=== PATIENT | male | born 1940 | race Asian ===

== ENCOUNTER 2020-01-02 17:25 | Emergency (ER) | payer OTHER ==
[~2020-01-02] VITALS: Ht 167.6 cm; Wt 65.9 kg
[~2020-01-02 17:25] MED LIST: ALLO100T21 PO; AMLO10TA PO; ASPI-1822 PO; ATEN50TA8 PO; CALC667S PO; HYDR-3229 PO; LOSA50TA57 PO; POTA20TE62 PO; SEN30 PO; SEVE800T PO; VITA1TAB44 PO
[2020-01-02 17:35] VITALS: BP 199/95
--- NOTE | 2020-01-02 18:00 | NUR ---
79 YO MALE BIBA FROM DIALYSIS FOR UNCONTROLLED BLEEDING FROM HIS SHUNT SITE. PT CAME IN WITH A GLOVE WRAPPED AROUND HIS ARM TO CONTROL BLEEDING. NO ACTIVE BLEEDING AT THIS TIME. LABS DRAWN AND TAKEN TO LAB. HX- HTN
--- NOTE | 2020-01-02 18:20 | NUR ---
PT REFUSED T DAP SHOT.
[2020-01-02 18:29] LABS: BASOPHILS % (AUTO) 0.7 % (0.0-2.0); EOSINOPHILS # (AUTO) 0.1 K/uL (0-0.4); EOSINOPHILS % (AUTO) 1.8 % (0.0-4.0); HEMATOCRIT 33.2 % (36-52); HEMOGLOBIN 11.1 g/dL (12.0-18.0); LYMPHOCYTES # (AUTO) 0.7 K/uL (2.0-11.5); LYMPHOCYTES % (AUTO) 15.5 % (20.5-51.1); MEAN CORPUSCULAR HEMOGLOBIN 32 pg (27-31); MEAN CORPUSCULAR HGB CONC 33 g/dL (33-37); MONOCYTES # (AUTO) 0.4 K/uL (0.8-1.0); MONOCYTES % (AUTO) 8.5 % (1.7-9.3); NEUTROPHILS # (AUTO) 3.5 K/uL (1.8-7.7); NEUTROPHILS % (AUTO) 73.5 % (42.2-75.2); PLATELET COUNT (AUTO) 192 K/uL (140-450); RED BLOOD CELL COUNT(AUTO) 3.49 MIL/uL (4.20-6.10); RED CELL DISTRIBUTION WIDTH 14.4 % (11.6-13.7); WHITE BLOOD COUNT (AUTO) 4.8 K/uL (4.8-10.8)
[2020-01-02 18:44] LABS: ANION GAP 13.4 (8-16); CARBON DIOXIDE 31.8 mmol/L (21-32); CHLORIDE 98 mmol/L (98-107); GLUCOSE 156 mg/dL (74-106); POTASSIUM 4.2 mmol/L (3.5-5.1); SODIUM SERUM 139 mmol/L (136-145); UREA NITROGEN, BLOOD 22 mg/dL (7-18)
[2020-01-02 18:50] LABS: CREATININE 4.4 mg/dL (0.6-1.3)
--- NOTE | 2020-01-02 19:30 | NUR ---
RECEIVED REPORT FROM FABRICIO COURTNEY . WILL CONT CARE AT THIS TIME.
--- NOTE | 2020-01-02 19:30 | NUR ---
RECEIVED REPORT FROM FABRICIO COURTNEY . WILL CONT CARE AT THIS TIME.
[2020-01-02 19:41] VITALS: BP 181/71
== END 2020-01-02 20:15 | disposition home or self-care (01) ==
LOC: MED 17:25
DX: T82.838A Hemorrhage due to vascular prosthetic devices, implants and grafts, initial encounter (principal); I12.0 Hypertensive chronic kidney disease with stage 5 chronic kidney disease or end stage renal disease; N18.6 End stage renal disease; Z79.899 Other long term (current) drug therapy; Z79.82 Long term (current) use of aspirin; Z99.2 Dependence on renal dialysis; Y83.8 Other surgical procedures as the cause of abnormal reaction of the patient, or of later complication, without mention of misadventure at the time of the procedure
CPT/HCPCS: 36415; 80048; 85025; 90471; 99283